=== PATIENT | male | born 1975 | race Caucasian/White ===

== ENCOUNTER 2024-01-18 06:00 | Outpatient (CLI) | payer BC, SELFPAY ==
--- NOTE | 2024-01-18 | US_ITS ---
WS: [id number] THYROID ULTRASOUND HISTORY: HYPOTHYROIDISM COMPARISON: 01/04/2023 Right lobe: 1.9 cm x 1.5 cm x 5.4 cm (w x ap x l). Volume: 8.2 cm3. Mildly heterogeneous gland. No mass or increased vascularity. Left lobe: 1.3 cm x 1.5 cm x 4.9 cm (w x ap x l). Volume: 5.2 cm3. Reidentified is a hypoechoic ill-defined nodule in the mid LEFT thyroid measuring 0.8 x 0.7 x 0.9 cm with no increased in size. Very similar in appearance to the prior examination. Isthmus: 0.3 cm. US/US thyroid [id number] IMPRESSION: 1. Reidentified 9 mm LEFT thyroid nodule. As described before TI-RADS 4 with c ontinued follow-up is recommended. Continue with follow-up now at 2 years, 3 ye ars and 5 years from the original exam of 01/04/2023. 2. Mildly heterogeneous thyroid. No additional nodules.
== END 2024-01-18 06:01 | disposition home or self-care (01) ==
LOC: RADOUTREAD 01-22 05:34
PROVIDERS: PCP Electrodiagnostic Medicine; Visit Provider Electrodiagnostic Medicine
DX: E03.9 Hypothyroidism, unspecified (principal)